=== PATIENT | male | born 1985 ===

== ENCOUNTER 2018-04-07 06:58 | Day surgery (SDC) | payer SELFPAY ==
[2018-03-27 13:48] VITALS: BMI 26.6
[2018-04-07] MEDS ORDERED: cefTRIAXone (Rocephin) 1 gm Inj ONE (07:27)
[2018-04-07] MEDS ORDERED: Succinylcholine 200 mg/10 ml Inj IV ONE (07:48)
[2018-04-07] MEDS ORDERED: Propofol 10 mg/ml Inj (20 ML) ONE (07:48)
[2018-04-07] MEDS ORDERED: Lidocaine 4% (Laryng-O-Jet) Kit MM ONE (07:49)
[2018-04-07 07:54] LABS: HEMOGLOBIN 15.5 g/dL (12.0-18.0); MEAN CELL VOLUME 81.3 fl (80.0-94.0); MEAN CORPUSCULAR HEMOGLOBIN 28.1 pg (27.0-31.0); MEAN CORPUSCULAR HGB CONC 34.6 g/dL (33.0-37.0); RBC 5.51 Mil/uL (4.40-5.90); RED CELL DISTRIBUTION WIDTH 13.7 % (11.5-14.5); WHITE BLOOD COUNT 7.1 K/uL (4.8-10.8)
[2018-04-07] MEDS ORDERED: Midazolam 2 MG/2 ML VIAL ONE (08:54)
[2018-04-07] MEDS ORDERED: ePHEDrine 50 mg/ml Inj ONE (08:54)
[2018-04-07] MEDS ORDERED: Lactated Ringer's 1,000 ML IV ONE ×3 (09:35→10:44)
[2018-04-07] MEDS ORDERED: Dexamethasone 4 mg/1 ml ONE (09:52)
[2018-04-07] MEDS: Bupivacaine HCl 0.25% PF (30 ml) Inj ONE ×2 (09:58→10:10)
--- NOTE | 2018-04-07 10:38 | PCM.SURG1 ---
Surgeon's Initial Post Op Note - Surgeon's Notes Surgeon: / Naif Clam Digger: Mónica Duran PGY3 Type of Anesthesia: General Endo, Local Anesthesia Administered By: Dr. Pickard Pre-Operative Diagnosis: Phimosis Operative Findings: Phimosis Post-Operative Diagnosis: Phimosis Operation Performed: Circumcision Specimen/Specimens Removed: Foreskin of penis Estimated Blood Loss: EBL {In ML}: 5 Blood Products Given: N/A Drains Used: No Drains Post-Op Condition: Good Date of Surgery/Procedure: 04/07/18 Time of Surgery/Procedure: 10:38
[2018-04-07] MEDS ORDERED: Lactated Ringer's 1,000 ML IV SCH (10:45)
[2018-04-07 12:59] VITALS: BP 116/71; PULSE 68; RESP 18; TEMP 97.5; O2SAT 98
--- NOTE | 2018-04-07 21:20 | OP ---
PROCEDURE DATE: 04/07/2018 SURGEON: Jodi Moreno MD PREOPERATIVE DIAGNOSIS: Phimosis. POSTOPERATIVE DIAGNOSIS: Phimosis. PROCEDURE PERFORMED: Circumcision. DESCRIPTION OF PROCEDURE: The patient was placed on the operating room table in a supine position. The area of the groin was draped and prepped in a sterile manner. Using circumferential incision, I removed the redundant foreskin. Following this, cauterized some small bleeders in the foreskin area. Then, I did a frenulectomy as well and then approximated the skin edges with multiple interrupted 4-0 chromic sutures. Once this was done, a Vaseline gauze dressing was placed, applied, and then on top of which was placed a Coban compressive dressing. Once this was done, the patient then was taken from the operating room in good condition. Blood loss was minimal. Jodi Moreno MD
== END 2018-04-07 13:15 | disposition home or self-care (01) ==
LOC: H.OPSURG 06:58
PROVIDERS: ATTEND Urology
DX: N48.1 Balanitis (principal); N47.1 Phimosis
CPT/HCPCS: 36415; 54161; 85027; 88305; J0330; J0696; J1100; J1885; J2001; J2250; J2405; J2704; J3010; J7120